=== PATIENT | female | born 1970 ===

== ENCOUNTER 2024-03-06 20:43 | Emergency (ER) | payer OTHER ==
[2024-03-06] MEDS ORDERED: IBUPROFEN 400 MG TAB ONE (21:14)
[2024-03-06] MEDS ORDERED: HYDROCODONE/APAP 7.5/325 MG TAB ONE (21:14)
--- NOTE | 2024-03-06 21:26 | RAD REPORT ---
EXAMINATION: Wrist Right 3 View CLINICAL INDICATION: Female, 53 years old. Deformity;Pain RIGHT COMPARISON: No prior exam. FINDINGS: Impacted distal radial fracture with intra-articular extension. There is mild posterior displacement. No dislocation. No significant focal degenerative change. Other: n/a IMPRESSION: Impaction fracture of the distal radius with intra-articular extension.
--- NOTE | 2024-03-06 22:20 | EDPHYS ---
Physician Documentation [facility] Name: Elizabeth Daniel Age: 53 yrs Sex: Female : 1970 Arrival Date: 03/06/2024 Time: 20:43 Bed 2 Private MD: ED Physician Kush Corcoran HPI: 03/06 21:15 This 53 yrs old Female presents to ER via Ambulatory with complaints of Arm Injury. cp 21:15 The patient or guardian complains of decreased range of motion, deformity, injury. The cp complaints affect the right wrist. Context: resulted from a fall, on an outstretched hand. Onset: The symptoms/episode began/occurred just prior to arrival. Treatment prior to arrival includes: no previous treatment. 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 - Infectious Disease History:: Denies. - Social history:: Smoking status: Patient denies any tobacco usage or history of. ROS: 21:20 MS/extremity: Positive for injury or acute deformity, pain, swelling, tenderness, of cp the right wrist, Negative for paresthesias, 21:20 Neck: Negative for pain with movement, pain at rest, cp 21:20 Back: Negative for pain at rest, pain with movement, Exam: 21:25 Constitutional: The patient appears in no acute distress, alert, awake, well developed, cp well nourished, uncomfortable, 21:25 Head/Face: Normocephalic, atraumatic. cp 21:25 Neck: ROM/movement: is normal, is supple, without pain, no range of motions limitations, 21:25 Chest/axilla: Inspection: normal, 21:25 Cardiovascular: Rate: tachycardic, Pulses: Pulses are 2+ in right radial artery. 21:25 Respiratory: the patient does not display signs of respiratory distress, Respirations: normal, no use of accessory muscles, no retractions, labored breathing, is not present, Breath sounds: are clear throughout, no decreased breath sounds, 21:25 Abdomen/GI: Exam negative for discomfort, distension, guarding, Inspection: abdomen appears normal, 21:25 Back: pain, is absent, ROM is normal, 21:25 Musculoskeletal/extremity: Extremities: noted in the right wrist: decreased ROM, deformity, pain, ROM: limited passive range of motion, in the right wrist, the right hand and right arm Sensation intact. 21:25 Neuro: Orientation: to person, place \T\ time. Mentation: is normal, Vital Signs: 20:49 BP 146 / 97; Pulse 108; Resp 16 S; Temp 98.3(O); Pulse Ox 97% on R/A; Weight 80.74 kg aa5 (R); Height 5 ft. 7 in. (R); 22:53 BP 137 / 84; Pulse 91; Resp 17; Temp 98.3; Pulse Ox 100% ; Pain 3/10; bm8 20:49 Body Mass Index 27.88 (80.74 kg, 170.18 cm) aa5 22:53 Pain Scale: Adult bm8 Amaya Coma Score: 21:26 Eye Response: spontaneous(4). Motor Response: obeys commands(6). Verbal Response: bm8 oriented(5). Total: 15. 22:53 Eye Response: spontaneous(4). Motor Response: obeys commands(6). Verbal Response: bm8 oriented(5). Total: 15. Procedures: 22:35 Splinting: Splint applied to right wrist using Orthoglass splint, sugar tong type. cp applied by nurse. Examined by me, post splint application: neurovascular intact, Patient tolerated well. MDM: 22:20 Medical Screening Exam initiated cp 22:20 Data reviewed: vital signs, nurses notes, radiologic studies, plain films. cp 22:20 I considered the following discharge prescriptions or medication management in the emergency department Medications were administered in the Emergency Department. See MAR. Independent interpretation of the following test(s) in the Emergency Department X-Ray: My interpretation is images of right wrist show distal radius fracture. Counseling: I had a detailed discussion with the patient and/or guardian regarding the historical points, exam findings, and any diagnostic results supporting the discharge/admit diagnosis, radiology results, the need for outpatient follow up, for definitive care, a orthopedic surgeon, to return to the emergency department if symptoms worsen or persist or if there are any questions or concerns that arise at home. Response to treatment: the patient's symptoms have markedly improved after treatment, and as a result, I will discharge patient. 03/06 21:08 Order name: XRAY Wrist RIGHT 3 view; Complete Time: 21:32 cp 03/06 22:17 Order name: Splint - Sugar Tong - Forearm; Complete Time: 22:53 cp 03/06 22:17 Order name: Sling; Complete Time: 22:53 cp Administered Medications: 21:22 Drug: Hydrocodone-Acetaminophen PO (7.5 mg-325 mg) 1 tabs PO once; RASS on ADMIN: bm8 Combtv4, Very Agttd3, Agttd2, Rstlss1, AlertClm0, Drwsy-1, Lt Sdtn-2, Mod Sdtn-3, Dp Sdtn-4, UnArsble-5 Route: PO; 21:26 Follow up: Response: No adverse reaction bm8 21:22 Drug: Ibuprofen PO 800 mg PO once Route: PO; bm8 21:26 Follow up: Response: No adverse reaction bm8 Disposition: 03/07 22:08 Chart complete. cp 22:39 Co-signature as Attending Physician, Kush Corcoran MD I agree with the assessment sp4 and plan of care. I reviewed the patient's care provided by the Advanced Practice Provider and agree with the diagnosis and treatment plan. Disposition Summary: 03/06/24 22:20 Discharge Ordered Notes: Location: Home cp Problem: new cp Symptoms: have improved cp Condition: Stable cp Diagnosis - Right Distal Intraarticular Radius Fracture cp Followup: cp - With: Abraham Jimenez MD - When: 5 - 6 days - Reason: Recheck today's complaints Discharge Instructions: - Discharge Summary Sheet cp - Wrist Fracture Treated With Immobilization cp Forms: - Medication Reconciliation Form cp - Antibiotic Education cp - Prescription Opioid Use cp - Patient Portal Instructions cp - Leadership Thank You Letter cp Prescriptions: - acetaminophen-codeine 300-30 mg Oral tablet - take 2 tablet ORAL route every 8-10 hours; 16 tablet; Refills: 0, Product cp Selection Permitted - Ibuprofen 800 mg Oral Tablet - take 1 tablet ORAL route every 8 hours As needed take with food; 30 tablet; cp Refills: 0, Product Selection Permitted Signatures: Dispatcher [employer] Ivory Nam, RN RN aa5 Jesus Bentley PA PA cp Potepalov, Sergey, MD MD sp4 Petros Xie RN RN bm8
--- NOTE | 2024-03-06 22:20 | ER ---
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 Right arm with FA deformity noted. Coronavirus screen: At this time, the client does not indicate any symptoms associated with coronavirus-19. Ebola Screen: Patient denies travel to an Ebola-affected area in the 21 days before illness onset. Initial Sepsis Screen: Does the patient meet any 2 criteria? No. Patient's initial sepsis screen is negative. Does the patient have a suspected source of infection? No. Patient's initial sepsis screen is negative. Risk Assessment: Do you want to hurt yourself or someone else? Patient reports no desire to harm self or others. Onset of symptoms was March 06, 2024. 20:49 Acuity: AARON 2 aa5 20:49 Method Of Arrival: Ambulatory aa5 Triage Assessment: 22:55 Injury Description: see previous charting. 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 - Infectious Disease History:: Denies. - Social history:: Smoking status: Patient denies any tobacco usage or history of. Screenin:26 [facility] ED Fall Risk Assessment (Adult) History of falling in the last 3 months, bm8 including since admission Yes- single mechanical fall (1 pt) Confusion or Disorientation No (0 pts) Intoxicated or Sedated No (0 pts) Impaired Gait No (0 pts) Mobility Assist Device Used No (0 pt) Altered Elimination No (0 pt) Score/Fall Risk Level 0 - 2 = Low Risk Oriented to surroundings, Maintained a safe environment, Educated pt \\T\\ family on fall prevention, incl call for assistance when getting out of bed, Assessed \\T\\ reinforced patient's understanding of fall precautions, Hourly rounding (assess needs \\T\\ fall precautionary measures) done, Used ambulatory aids as needed (educated on \\T\\ assisted with), Used gait belt as appropriate. Abuse screen: Denies threats or abuse. Nutritional screening: No deficits noted. Tuberculosis screening: No symptoms or risk factors identified. Assessment: 21:26 General: Appears in no apparent distress. comfortable, Behavior is calm, cooperative, bm8 appropriate for age. Pain: Complains of pain in right arm Pain currently is 7 out of 10 on a pain scale. Quality of pain is described as aching, throbbing, Pain began 1 hour ago. Neuro: No deficits noted. Level of Consciousness is awake, alert, obeys commands, Oriented to person, place, time, situation, Appropriate for age. Cardiovascular: Denies chest pain, Capillary refill < 3 seconds in bilateral fingers Patient's skin is warm and dry. Respiratory: Airway is patent Trachea midline Respiratory effort is even, unlabored, Respiratory pattern is regular, symmetrical, Breath sounds are clear bilaterally. GI: No signs and/or symptoms were reported involving the gastrointestinal system. : No signs and/or symptoms were reported regarding the genitourinary system. EENT: No signs and/or symptoms were reported regarding the EENT system. Derm: No signs and/or symptoms reported regarding the dermatologic system. Musculoskeletal: Circulation, motion, and sensation intact. Capillary refill < 3 seconds, in bilateral fingers. Range of motion: limited in right wrist Swelling present in right arm Reports pain in right arm since falling on it while participating in martial arts activity. 22:53 Reassessment: Patient appears in no apparent distress at this time. Patient and/or bm8 family updated on plan of care and expected duration. Pain level reassessed. Patient is alert, oriented x 3, equal unlabored respirations, skin warm/dry/pink. pt placed in sugar tong splint using ortho glass. Shoulder sling applied as well Patient states feeling better. Patient states symptoms have improved. Vital Signs: 20:49 BP 146 / 97; Pulse 108; Resp 16 S; Temp 98.3(O); Pulse Ox 97% on R/A; Weight 80.74 kg aa5 (R); Height 5 ft. 7 in. (R); 22:53 BP 137 / 84; Pulse 91; Resp 17; Temp 98.3; Pulse Ox 100% ; Pain 3/10; bm8 20:49 Body Mass Index 27.88 (80.74 kg, 170.18 cm) aa5 22:53 Pain Scale: Adult bm8 Amaya Coma Score: 21:26 Eye Response: spontaneous(4). Motor Response: obeys commands(6). Verbal Response: bm8 oriented(5). Total: 15. 22:53 Eye Response: spontaneous(4). Motor Response: obeys commands(6). Verbal Response: bm8 oriented(5). Total: 15. ED Course: 20:45 Patient arrived in ED. jj6 20:49 Arm band placed on. aa5 20:50 Triage completed. aa5 20:56 Jesus Bentely PA is PHCP. cp 20:56 Kush Corcoran MD is Attending Physician. cp 21:12 Petros Xie, RN is Primary Nurse. bm8 21:17 XRAY Wrist RIGHT 3 view In Process Unspecified. EDMS 21:26 Patient has correct armband on for positive identification. Placed in gown. Bed in low bm8 position. Call light in reach. Side rails up X 1. Client placed on continuous cardiac and pulse oximetry monitoring. NIBP monitoring applied. Pulse ox on. NIBP on. Door closed. Noise minimized. Warm blanket given. Pillow given. Verbal reassurance given. Head of bed elevated. 21:26 No provider procedures requiring assistance completed. X-ray(s) taken. Patient did not bm8 have IV access during this emergency room visit. Patient maintains SpO2 saturation greater than 95% on room air. ice pack placed over injury on right wrist. 22:18 Abraham Jimenez MD is Referral Physician. cp 22:53 Provided Education on: post er care, Orthoglass care. bm8 Administered Medications: 21:22 Drug: Hydrocodone-Acetaminophen PO (7.5 mg-325 mg) 1 tabs PO once; RASS on ADMIN: bm8 Combtv4, Very Agttd3, Agttd2, Rstlss1, AlertClm0, Drwsy-1, Lt Sdtn-2, Mod Sdtn-3, Dp Sdtn-4, UnArsble-5 Route: PO; 21:26 Follow up: Response: No adverse reaction bm8 21:22 Drug: Ibuprofen PO 800 mg PO once Route: PO; bm8 21:26 Follow up: Response: No adverse reaction bm8 Medication: 21:26 VIS not applicable for this client. bm8 Outcome: 22:20 Discharge ordered by . alexandra 22:53 Discharged to home ambulatory, with family, bm8 :53 Condition: stable 22:53 Discharge instructions given to patient, family, Instructed on discharge instructions, follow up and referral plans. Demonstrated understanding of instructions, follow-up care, medications, Prescriptions given X 2, 22:56 Patient left the ED. bm8 Signatures: Dispatcher [employer] EDMS Ivory Moreno, RN RN aa5 Jesus Bentley, JENNIFER PA Anju [id number] Petros Xie, RN RN bm8
[2024-03-08 02:33] VITALS: BP 137/84; TEMP 98.3; O2SAT 100
== END 2024-03-06 22:56 | disposition home or self-care (01) ==
LOC: ER 20:43
PROC: 2W38X1Z Immobilization of Right Upper Extremity using Splint (ICD-10-PCS; principal; 2024-03-06)
DX: S52.571A Other intraarticular fracture of lower end of right radius, initial encounter for closed fracture (principal); Y93.75 Activity, martial arts; Y92.89 Other specified places as the place of occurrence of the external cause; Y99.8 Other external cause status
CPT/HCPCS: 99284